=== PATIENT | male | born 1970 | race Caucasian/White ===

== ENCOUNTER 2016-04-14 00:31 | Emergency (ER) | payer OTHER | END 2016-04-14 01:30 | disposition left against medical advice (07) | LOC: ER 00:31 | DX: Z53.21 Procedure and treatment not carried out due to patient leaving prior to being seen by health care provider (principal) ==

== ENCOUNTER 2019-04-07 13:06 | Emergency (ER) | payer OTHER ==
[~2019-04-07] VITALS: Ht 177.8 cm; Wt 104.3 kg
[2019-04-07 13:13] VITALS: BP 136/82
[2019-04-07] MEDS ORDERED: predniSONE 20 MG TABLET PO ONE (13:30)
[2019-04-07] MEDS ORDERED: diphenhydrAMINE HCL 25 MG CAPSULE PO ONE (13:30)
[2019-04-07] MEDS ORDERED: FAMOTIDINE (20 MG) 20 MG TABLET PO ONE (13:30)
[2019-04-07] MEDS ORDERED: predniSONE 20 MG TABLET ONE (13:38)
[2019-04-07] MEDS ORDERED: diphenhydrAMINE HCL 25 MG CAPSULE ONE (13:39)
[2019-04-07] MEDS ORDERED: FAMOTIDINE (20 MG) 20 MG TABLET ONE (13:40)
== END 2019-04-07 14:16 | disposition home or self-care (01) ==
LOC: ER 13:07
DX: L50.0 Allergic urticaria (principal); E11.9 Type 2 diabetes mellitus without complications; F10.10 Alcohol abuse, uncomplicated; F17.200 Nicotine dependence, unspecified, uncomplicated; Y90.9 Presence of alcohol in blood, level not specified
CPT/HCPCS: 99284; J7512; Q0163

== ENCOUNTER 2020-02-02 20:48 | Emergency (ER) | payer OTHER ==
[~2020-02-02] VITALS: Ht 172.7 cm; Wt 83.9 kg
--- NOTE | 2020-02-02 21:10 | NUR ---
PATIENT CAME TO ER BED 3 STARTED ESCITALOPRAM 4DAYS AGO FOR "STRESS", FEELS LIKE ITS NOT WORKING, WITH HIGH BP. PATIENT IS AAOX4. NO SOB .BREATHING EVENLY AND UNLABORED ON ROOM AIR. CONNECTED TO THE MONITOR. WILL CONTINUE TO MONITOR ACCORDINGLY.
[2020-02-02 21:12] LABS: BASOPHILS % (AUTO) 0.5 % (0.0-2.0); EOSINOPHILS % (AUTO) 0.5 % (0.0-6.0); HEMATOCRIT 42 % (39-51); HEMOGLOBIN 14.2 g/dL (13.5-17.5); LYMPHOCYTES # (AUTO) 2.4 /CMM (0.8-4.8); LYMPHOCYTES % (AUTO) 25.7 % (20.0-44.0); MEAN CORPUSCULAR HGB CONC 34 g/dl (31.0-36.0); MEAN CORPUSCULAR VOLUME 89 fL (80-96); MONOCYTES # (AUTO) 0.8 /CMM (0.1-1.30); MONOCYTES % (AUTO) 8.3 % (2.0-12.0); NEUTROPHILS # (AUTO) 6.2 /CMM (1.8-8.9); PLATELET COUNT (AUTO) 182 /CMM (150-450); RED BLOOD CELL COUNT(AUTO) 4.69 MIL/uL (4.5-6.0); WHITE BLOOD COUNT (AUTO) 9.5 K/uL (4.3-11.0)
--- NOTE | 2020-02-02 21:17 | NUR ---
X RAY AT BED SIDE
[2020-02-02 21:53] LABS: CALCIUM, SERUM 9.1 mg/dL (8.5-10.1); CARBON DIOXIDE 26 mmol/L (21-32); CHLORIDE 101 mmol/L (98-107); CREATININE 1.1 mg/dL (0.6-1.3); GLUCOSE 207 mg/dL (74-106); POTASSIUM 3.7 mmol/L (3.5-5.1); SODIUM SERUM 138 mmol/L (136-145); UREA NITROGEN, BLOOD 13 mg/dL (7-18)
[2020-02-02 22:06] LABS: ALANINE AMINOTRANSFERASE 74 U/L (12-78); ALBUMIN 3.9 g/dL (3.4-5.0); ALKALINE PHOSPHATASE 68 U/L (46-116); ASPARTATE AMINOTRANSFERASE 33 U/L (15-37); B-TYPE NATRIURETIC PEPTIDE 30 PG/ML (0-125); BILIRUBIN,DIRECT 0.2 mg/dL (0.0-0.2); BILIRUBIN,TOTAL 0.5 mg/dL (0.2-1.0); TOTAL PROTEIN, SERUM 8.2 g/dL (6.4-8.2)
--- NOTE | 2020-02-02 22:12 | NUR ---
Patient discharged to home in stable condition. Written and verbal after care instructions given. Patient verbalizes understanding of instruction and rx. Pt ambulated out of E.D. vss.
--- NOTE | 2020-02-02 22:12 | NUR ---
IV removed. Catheter intact and site benign. Pressure and 4x4 applied to site. No bleeding noted.
[2020-02-02 22:15] VITALS: BP 132/74
== END 2020-02-02 22:15 | disposition home or self-care (01) ==
LOC: ER 20:51
DX: I10 Essential (primary) hypertension (principal); E11.9 Type 2 diabetes mellitus without complications; F41.9 Anxiety disorder, unspecified; F32.9 Major depressive disorder, single episode, unspecified
CPT/HCPCS: 36415; 71045-TC; 80048-TC; 80076-TC; 83880; 84484-TC; 85025-TC

== ENCOUNTER 2020-08-19 18:00 | Emergency (ER) | payer OTHER ==
[~2020-08-19] VITALS: Ht 177.8 cm; Wt 111.1 kg
[2020-08-19 18:10] VITALS: BP 146/93
[2020-08-19] MEDS ORDERED: KETOROLAC TROMETHAMINE INJ 30 MG/ML VIAL IM ONE (18:30)
[2020-08-19] MEDS ORDERED: KETOROLAC TROMETHAMINE INJ 30 MG/ML VIAL IV ONE (18:30)
[2020-08-19] MEDS ORDERED: MORPHINE SULFATE INJ 2 MG/ML DISP.SYRIN IM ONE (18:30)
--- NOTE | 2020-08-19 18:36 | NUR ---
Patient awake alert c/c back pain family @ bedside non distress .
--- NOTE | 2020-08-19 18:36 | NUR ---
Silvana bowles in [facility] - 08/19/20 at 1836 by MARTHA Jazlyn
[2020-08-19] MEDS ORDERED: HYDR-3972 PO (18:37)
[2020-08-19] MEDS ORDERED: METH4TAB17 PO (18:37)
--- NOTE | 2020-08-19 18:49 | NUR ---
Patient discharged to home in stable condition. Written and verbal after care instructions given. Patient verbalizes understanding of instruction.
[2020-08-19] MEDS ORDERED: HYDR-4209 PO (19:19)
== END 2020-08-19 18:50 | disposition home or self-care (01) ==
LOC: ER 18:04
DX: M54.42 Lumbago with sciatica, left side (principal); I10 Essential (primary) hypertension; E11.9 Type 2 diabetes mellitus without complications; F17.200 Nicotine dependence, unspecified, uncomplicated

== ENCOUNTER 2023-11-26 06:35 | Emergency (ER) | payer OTHER ==
[~2023-11-26] VITALS: Ht 167.6 cm; Wt 77.1 kg
[~2023-11-26 06:35] MED LIST: HYDR-3972 PO; HYDR-4209 PO; METH4TAB17 PO
[2023-11-26 07:30] VITALS: TEMP 98.1
[2023-11-26] MEDS: IV NS 0.9% 1,000 ML BAG IV ONE (07:30)
[2023-11-26 08:08] LABS: BASOPHILS % (AUTO) 0.2 % (0.0-2.0); HEMATOCRIT 41 % (39-51); HEMOGLOBIN 13.5 g/dL (13.5-17.5); LYMPHOCYTES # (AUTO) 1.6 K/uL (0.8-4.8); LYMPHOCYTES % (AUTO) 11.7 % (20.0-44.0); MEAN CORPUSCULAR HEMOGLOBIN 28 PG (26.0-33.0); MEAN CORPUSCULAR HGB CONC 33 g/dl (31.0-36.0); MEAN CORPUSCULAR VOLUME 85 fL (80-96); MONOCYTES # (AUTO) 0.8 K/uL (0.1-1.30); MONOCYTES % (AUTO) 5.9 % (2.0-12.0); NEUTROPHILS # (AUTO) 11.1 K/uL (1.8-8.9); NEUTROPHILS % (AUTO) 82.2 % (43.0-81.0); PLATELET COUNT (AUTO) 182 K/uL (150-450); RED BLOOD CELL COUNT(AUTO) 4.76 MIL/uL (4.5-6.0); RED CELL DISTRIBUTION WIDTH 13.7 % (11.5-15.0); WHITE BLOOD COUNT (AUTO) 13.5 K/uL (4.3-11.0)
[2023-11-26 08:12] LABS: CALCIUM, SERUM 9.2 mg/dL (8.5-10.1); CARBON DIOXIDE 27 mmol/L (21-32); CHLORIDE 99 mmol/L (98-107); CREATININE 1.1 mg/dL (0.6-1.3); GLUCOSE 207 mg/dL (74-106); POTASSIUM 4.3 mmol/L (3.5-5.1); SODIUM SERUM 135 mmol/L (136-145); UREA NITROGEN, BLOOD 19 mg/dL (7-18)
[2023-11-26] MEDS ORDERED: ASPIRIN 81 MG TAB.CHEW ONE (08:58)
[2023-11-26] MEDS: ASPIRIN 81 MG TAB.CHEW PO ONE (09:00)
[2023-11-26 09:26] LABS: INR 1.05 (0.91-1.10); PARTIAL THROMBOPLASTIN TIME 28.5 SEC (24.3-34.3); PROTHROMBIN TIME 11.1 SECS (9.2-11.1)
[2023-11-26] MEDS ORDERED: HEPARIN SODIUM, PORCINE 5000 UNITS/1 ML VIAL ONE ×2 (09:49→17:46)
[2023-11-26] MEDS: HEPARIN SODIUM, PORCINE 5000 UNITS/1 ML VIAL IV ONE ×2 (10:05→17:53)
[2023-11-26] MEDS: HEPARIN INFUSION/D5W 500 ML IV PRN (10:05)
[2023-11-26] MEDS ORDERED: ATORVASTATIN 10 MG TABLET PO SCH (11:00)
[2023-11-26] MEDS ORDERED: METOPROLOL TARTRATE 50 MG TABLET PO SCH (12:00)
[2023-11-26 16:19] LABS: INR 1.09 (0.91-1.10); PARTIAL THROMBOPLASTIN TIME 29.4 SEC (24.3-34.3); PROTHROMBIN TIME 11.2 SECS (9.2-11.1)
[2023-11-26 19:15] VITALS: BP 104/73; O2SAT 99
[2023-11-27] MEDS ORDERED: ASPIRIN 81 MG TAB.CHEW PO SCH (09:00)
== END 2023-11-26 20:57 | disposition short-term general hospital (02) ==
LOC: ER 06:38
DX: I21.4 Non-ST elevation (NSTEMI) myocardial infarction (principal); R94.31 Abnormal electrocardiogram [ECG] [EKG]; R79.89 Other specified abnormal findings of blood chemistry; D72.829 Elevated white blood cell count, unspecified; E11.65 Type 2 diabetes mellitus with hyperglycemia; I10 Essential (primary) hypertension; E78.5 Hyperlipidemia, unspecified; F41.9 Anxiety disorder, unspecified; F32.A Depression, unspecified; F17.200 Nicotine dependence, unspecified, uncomplicated
CPT/HCPCS: 99291; 96366; 93307; 96365; 71045; 96361; 93005 ×3; 85025; 80048; 85610 ×2; 85730 ×2; 36415; 84484 ×3; 96376; J1644 ×3; J7030; A4223

== ENCOUNTER 2024-04-04 12:59 | Inpatient (IN) | payer OTHER ==
[~2024-04-04] VITALS: Ht 177.8 cm; Wt 111.1 kg
[2024-04-04 14:40] LABS: BASOPHILS % (AUTO) 0.4 % (0.0-2.0); EOSINOPHILS # (AUTO) 0.1 K/uL (0.0-0.7); EOSINOPHILS % (AUTO) 1.2 % (0.0-6.0); HEMATOCRIT 34 % (39-51); HEMOGLOBIN 11.4 g/dL (13.5-17.5); LYMPHOCYTES % (AUTO) 23.7 % (20.0-44.0); MEAN CORPUSCULAR HEMOGLOBIN 27 PG (26.0-33.0); MEAN CORPUSCULAR HGB CONC 33 g/dl (31.0-36.0); MEAN CORPUSCULAR VOLUME 83 fL (80-96); MONOCYTES # (AUTO) 0.7 K/uL (0.1-1.30); MONOCYTES % (AUTO) 8.9 % (2.0-12.0); NEUTROPHILS # (AUTO) 5.5 K/uL (1.8-8.9); NEUTROPHILS % (AUTO) 65.8 % (43.0-81.0); PLATELET COUNT (AUTO) 159 K/uL (150-450); RED BLOOD CELL COUNT(AUTO) 4.16 MIL/uL (4.5-6.0); WHITE BLOOD COUNT (AUTO) 8.4 K/uL (4.3-11.0)
[2024-04-04 14:49] LABS: CALCIUM, SERUM 8.9 mg/dL (8.5-10.1); CARBON DIOXIDE 30 mmol/L (21-32); CHLORIDE 104 mmol/L (98-107); CREATININE 0.9 mg/dL (0.6-1.3); GLUCOSE 168 mg/dL (74-106); POTASSIUM 4.2 mmol/L (3.5-5.1); SODIUM SERUM 139 mmol/L (136-145); UREA NITROGEN, BLOOD 15 mg/dL (7-18)
[2024-04-04] MEDS ORDERED: ASPI-1169 PO (17:09)
[2024-04-04] MEDS ORDERED: AMLO-212 PO (17:09)
[2024-04-04] MEDS ORDERED: CLOP75TA15 PO (17:09)
[2024-04-04] MEDS ORDERED: METO25TA4 PO (17:09)
[2024-04-04] MEDS ORDERED: MAG HYDROX/AL HYDROX/SIMETH 30 ML UDC PO PRN (20:00)
[2024-04-04] MEDS ORDERED: MAGNESIUM HYDROXIDE 30 ML UDC PO PRN (20:00)
[2024-04-04] MEDS ORDERED: ACETAMINOPHEN 325 MG TABLET PO PRN (20:00)
[2024-04-04] MEDS ORDERED: ONDANSETRON HCL/PF 4 MG/2 ML VIAL IVP PRN (20:00)
[2024-04-04 21:00] VITALS: BP 124/77; TEMP 98.1; O2SAT 98
[2024-04-04] MEDS: HYDROCODONE/APAP 5/325MG TABLET PO PRN (22:19)
[2024-04-05] VITALS: BP 133/81; TEMP 98.4; O2SAT 100
[2024-04-05] MEDS ORDERED: DEXTROSE 50%-WATER 50 ML DISP.SYRIN IV PRN (00:30)
[2024-04-05 04:00] VITALS: BP 138/78; TEMP 98.2; O2SAT 99
[2024-04-05] MEDS: BLOOD SUGAR DIAGNOSTIC 1 EACH STRIP IN SCH (06:38)
[2024-04-05] MEDS: INSULIN REGULAR, HUMAN 100 UNIT/ML 3 ML VIAL SQ PRN (06:39)
[2024-04-05 07:32] LABS: BASOPHILS % (AUTO) 0.3 % (0.0-2.0); EOSINOPHILS # (AUTO) 0.1 K/uL (0.0-0.7); EOSINOPHILS % (AUTO) 1.5 % (0.0-6.0); HEMATOCRIT 35 % (39-51); HEMOGLOBIN 11.5 g/dL (13.5-17.5); LYMPHOCYTES # (AUTO) 2.7 K/uL (0.8-4.8); LYMPHOCYTES % (AUTO) 32.1 % (20.0-44.0); MEAN CORPUSCULAR HEMOGLOBIN 28 PG (26.0-33.0); MEAN CORPUSCULAR HGB CONC 33 g/dl (31.0-36.0); MEAN CORPUSCULAR VOLUME 83 fL (80-96); MONOCYTES # (AUTO) 0.8 K/uL (0.1-1.30); MONOCYTES % (AUTO) 9.4 % (2.0-12.0); NEUTROPHILS # (AUTO) 4.7 K/uL (1.8-8.9); NEUTROPHILS % (AUTO) 56.7 % (43.0-81.0); PLATELET COUNT (AUTO) 189 K/uL (150-450); RED BLOOD CELL COUNT(AUTO) 4.18 MIL/uL (4.5-6.0); RED CELL DISTRIBUTION WIDTH 16.8 % (11.5-15.0); WHITE BLOOD COUNT (AUTO) 8.3 K/uL (4.3-11.0)
[2024-04-05 07:40] LABS: CALCIUM, SERUM 8.6 mg/dL (8.5-10.1); CREATININE 0.9 mg/dL (0.6-1.3); PHOSPHORUS 4.4 mg/dL (2.5-4.9); POTASSIUM 4.4 mmol/L (3.5-5.1)
[2024-04-05 08:05] VITALS: BP 145/90; TEMP 98.1; O2SAT 97
[2024-04-05] MEDS: ASPIRIN 81 MG TAB.CHEW PO SCH (08:38)
[2024-04-05] MEDS: CLOPIDOGREL BISULFATE 75 MG TABLET PO SCH (08:38)
[2024-04-05 08:39] VITALS: BP 145/90
[2024-04-05] MEDS: METOPROLOL SUCCINATE 25 MG TAB.SR.24H PO SCH (08:39)
[2024-04-05] MEDS: ATORVASTATIN 10 MG TABLET PO SCH (08:39)
[2024-04-05] MEDS: AMLODIPINE BESYLATE 5 MG TABLET PO SCH (08:39)
[2024-04-05] MEDS ORDERED: ATOR10TA PO (11:38)
== END 2024-04-05 19:00 | disposition home or self-care (01) | DRG 203 ==
LOC: ER 13:02 → TELE 20:32
PROVIDERS: ATTEND Nurse Practitioner Family
DX: M94.0 Chondrocostal junction syndrome [Tietze] (principal); D64.9 Anemia, unspecified; E11.9 Type 2 diabetes mellitus without complications; E78.5 Hyperlipidemia, unspecified; E66.9 Obesity, unspecified; I25.10 Atherosclerotic heart disease of native coronary artery without angina pectoris; F32.A Depression, unspecified; I10 Essential (primary) hypertension; Z95.1 Presence of aortocoronary bypass graft; F41.9 Anxiety disorder, unspecified; Z79.02 Long term (current) use of antithrombotics/antiplatelets; Z79.82 Long term (current) use of aspirin; Z79.899 Other long term (current) drug therapy; Z68.35 Body mass index [BMI] 35.0-35.9, adult; I25.2 Old myocardial infarction
CPT/HCPCS: 36415; 71045-TC; 80048-TC; 80061-TC; 82962-TC; 83735-TC; 84100-TC; 84484-TC; 85025-TC; 93307-TC; G0378; J1815

== ENCOUNTER 2025-02-15 00:11 | Inpatient (IN) | payer OTHER ==
[~2025-02-15] VITALS: Ht 177.8 cm; Wt 112.9 kg
[~2025-02-15 00:11] MED LIST changes: +AMLO-212 PO; +ASPI-1169 PO; +ATOR10TA PO; +CLOP75TA15 PO; -HYDR-3972 PO; -HYDR-4209 PO; -METH4TAB17 PO; +METO25TA4 PO
[2025-02-15] MEDS ORDERED: ONDANSETRON HCL/PF 4 MG/2 ML VIAL ONE (01:14)
[2025-02-15] MEDS: ASPIRIN 325 MG TABLET PO ONE (01:14)
[2025-02-15] MEDS: ONDANSETRON HCL/PF - ER 4 MG/2 ML VIAL IV ONE (01:14)
[2025-02-15 01:28] LABS: PLATELET COUNT (AUTO) 169 K/uL (150-450); RED BLOOD CELL COUNT(AUTO) 4.62 MIL/uL (4.5-6.0); RED CELL DISTRIBUTION WIDTH 14.2 % (11.5-15.0); WHITE BLOOD COUNT (AUTO) 8.8 K/uL (4.3-11.0)
[2025-02-15 01:40] LABS: CALCIUM, SERUM 8.9 mg/dL (8.5-10.1); CREATININE 0.9 mg/dL (0.6-1.3); SODIUM SERUM 138 mmol/L (136-145); UREA NITROGEN, BLOOD 16 mg/dL (7-18)
[2025-02-15 01:56] LABS: ASPARTATE AMINOTRANSFERASE 43 U/L (15-37); NT-PRO BNP 127 pg/mL (0-125); TOTAL PROTEIN, SERUM 8.2 g/dL (6.4-8.2)
[2025-02-15 04:18] VITALS: BP 128/85; TEMP 97.5; O2SAT 99
[2025-02-15] MEDS: ENOXAPARIN SODIUM 40 MG/0.4 ML DISP.SYRIN SQ SCH (05:53)
[2025-02-15] MEDS ORDERED: ONDANSETRON HCL/PF 4 MG/2 ML VIAL IVP PRN (06:00)
[2025-02-15] MEDS ORDERED: NITROGLYCERIN 0.4 MG/TAB BOTTLE SL PRN (06:00)
[2025-02-15] MEDS ORDERED: ZOLPIDEM TARTRATE 5 MG TABLET PO PRN (06:00)
[2025-02-15] MEDS ORDERED: Z GUARD REMEDY 4 OZ OINT TP PRN (06:00)
[2025-02-15] MEDS ORDERED: MAG HYDROX/AL HYDROX/SIMETH 30 ML UDC PO PRN (06:00)
[2025-02-15] MEDS ORDERED: ACETAMINOPHEN 325 MG TABLET PO PRN (06:00)
[2025-02-15] MEDS ORDERED: DEXTROSE 50%-WATER 50 ML DISP.SYRIN IV PRN (06:00)
[2025-02-15] MEDS ORDERED: MAGNESIUM HYDROXIDE 30 ML UDC PO PRN (06:00)
[2025-02-15] MEDS: BLOOD SUGAR DIAGNOSTIC 1 EACH STRIP IN SCH (06:30)
[2025-02-15] MEDS: INSULIN REGULAR, HUMAN 100 UNIT/ML 3 ML VIAL SQ PRN (06:32)
[2025-02-15] MEDS: ASPIRIN 81 MG TAB.CHEW PO SCH (08:14)
[2025-02-15] MEDS: PANTOPRAZOLE 40 MG TABLET.DR PO SCH (08:14)
[2025-02-15] MEDS: HYDROCODONE/APAP 5/325MG TABLET PO PRN (09:01)
[2025-02-15] MEDS ORDERED: METOPROLOL SUCCINATE 50 MG TAB.SR.24H PO SCH (09:30)
[2025-02-15] MEDS ORDERED: ASPIRIN 81 MG TAB.CHEW PO SCH (09:30)
[2025-02-15] MEDS: METOPROLOL SUCCINATE 25 MG TAB.SR.24H PO SCH (09:40)
[2025-02-15] MEDS: AMLODIPINE BESYLATE 5 MG TABLET PO SCH (09:41)
[2025-02-15] MEDS: CLOPIDOGREL BISULFATE 75 MG TABLET PO SCH (09:42)
[2025-02-15] MEDS: ATORVASTATIN 10 MG TABLET PO SCH (09:42)
[2025-02-15 09:58] LABS: LDL 57.0 mg/dL (0-99)
[2025-02-15] MEDS ORDERED: IOHEXOL-350 100 ML VIAL IV ONE (10:31)
[2025-02-15] MEDS ORDERED: IV NS 0.9% 250 ML IV ONE (10:32)
[2025-02-15] MEDS: METOPROLOL TARTRATE INJ 5 MG/5 ML AMPUL IVP PRN (10:45)
[2025-02-15 10:55] VITALS: BP 134/85
[2025-02-15] MEDS: NITROGLYCERIN 0.4 MG/TAB BOTTLE SL ONE (10:55)
== END 2025-02-15 14:50 | disposition left against medical advice (07) | DRG 243 ==
LOC: ER 00:14 → TELE1 02:45
DX: K21.9 Gastro-esophageal reflux disease without esophagitis (principal); E11.9 Type 2 diabetes mellitus without complications; I10 Essential (primary) hypertension; E66.9 Obesity, unspecified; F32.A Depression, unspecified; I25.10 Atherosclerotic heart disease of native coronary artery without angina pectoris; E78.5 Hyperlipidemia, unspecified; F41.9 Anxiety disorder, unspecified; G47.33 Obstructive sleep apnea (adult) (pediatric); Z79.899 Other long term (current) drug therapy; Z95.1 Presence of aortocoronary bypass graft; Z68.35 Body mass index [BMI] 35.0-35.9, adult; Z79.82 Long term (current) use of aspirin; Z53.29 Procedure and treatment not carried out because of patient's decision for other reasons
CPT/HCPCS: 36415; 71045-TC; 75574; 80048-TC; 80061-TC; 80076-TC; 82962-TC; 83880; 84439-TC; 84443-TC; 84484-TC; 85025-TC; 93307-TC; G0378; J1650; J1815; J2405; J3490; J7050; Q9967